=== PATIENT | male | born 1985 | race Caucasian/White ===

== ENCOUNTER 2021-02-10 14:07 | Outpatient (REF) | payer OTHER, SELFPAY ==
[2021-02-10 16:34] LABS: Hematocrit 43.3 % (42-52); Hemoglobin 14.7 g/dl (14.0-18.0); Mean Corpuscular HGB Conc 33.9 g/dl (31.0-36.0); Mean Corpuscular Hemoglobin 29.9 pg (27.0-33.0); Mean Corpuscular Volume 88.2 fL (80-98); Mean Platelet Volume 10.6 fL (9.4-12.4); Platelet Count 235 X10*3/uL (160-400); Red Blood Count 4.91 X10*6/uL (4.60-5.80); Red Cell Distribution Width 12.5 % (11.0-16.0); White Blood Count 8.5 X10*3/uL (4.8-10.8)
[2021-02-10 16:48] LABS: Alanine Aminotransferase 19 U/L (0-40); Albumin Level 4.9 g/dL (3.5-5.0); Alkaline Phosphatase 60 U/L (39-117); Anion Gap 16 (12-20); Aspartate Amino Transferase 20 U/L (5-37); Bilirubin Direct 0.4 mg/dL (0.0-0.5); Blood Urea Nitrogen 11 mg/dL (9-16); Calcium 10.1 mg/dL (8.4-10.2); Carbon Dioxide 25 mmol/L (22-29); Chloride 105 mmol/L (96-108); Estimated Glomerular Filt Rate > 60; Glucose Random 91 mg/dL (60-115); Potassium 4.5 mmol/L (3.3-5.1); Sodium 141 mmol/L (135-145); Total Protein 7.5 g/dL (6.5-8.0)
[2021-02-10 17:09] LABS: Thyroid Stimulating Hormone 0.78 uIU/mL (0.32-4.0)
== END 2021-02-10 14:08 | disposition home or self-care (01) ==
LOC: HO.HMGCLDS 14:07
PROVIDERS: Visit Provider Internal Medicine
DX: F41.1 Generalized anxiety disorder (principal)
CPT/HCPCS: 36415; 80048; 80076; 84443; 85027

== ENCOUNTER 2021-04-08 10:44 | Outpatient (REF) | payer OTHER, SELFPAY ==
[2021-04-08 14:20] LABS: Cholesterol 177 mg/dL; HDL Cholesterol 61 mg/dL; LDL Cholesterol Calculated 106 mg/dl; Triglycerides 53 mg/dL
[2021-04-08 14:41] LABS: Vitamin D 25-OH Total 20.4 ng/mL (>30)
== END 2021-04-08 10:45 | disposition home or self-care (01) ==
LOC: HO.HMGCLDS 10:44
PROVIDERS: PCP Internal Medicine; Visit Provider Internal Medicine
DX: Z00.00 Encounter for general adult medical examination without abnormal findings (principal)
CPT/HCPCS: 36415; 80061; 82306